=== PATIENT | female | born 1965 | race Native Hawaiian/Other Pacific Islander ===

== ENCOUNTER 2017-06-27 11:15 | Outpatient (CLI) | payer OTHER ==
[~2017-06-27 11:15] MED LIST: BENICAR20 MG PO; LEVO0.0218 PO; LIPITOR20 MG PO
== END 2017-06-28 04:41 | disposition home or self-care (01) ==
LOC: MAMMO 11:15
DX: Z12.31 Encounter for screening mammogram for malignant neoplasm of breast (principal)

== ENCOUNTER 2017-07-19 10:53 | Outpatient (CLI) | payer OTHER | END 2017-07-19 23:58 | disposition home or self-care (01) | LOC: CT 10:53 | DX: R59.1 Generalized enlarged lymph nodes (principal) ==

== ENCOUNTER 2017-11-02 10:21 | Emergency (ER) | payer OTHER ==
[~2017-11-02] VITALS: Ht 162.6 cm; Wt 76.2 kg
[2017-11-02 10:25] VITALS: TEMP 97.9
[2017-11-02 11:27] LABS: PLATELET COUNT 217 K/uL (152-353)
[2017-11-02 11:29] LABS: POTASSIUM 3.7 mmol/L (3.6-5.2)
[2017-11-02 12:12] VITALS: BP 164/80
== END 2017-11-02 12:12 | disposition home or self-care (01) ==
LOC: ED 10:21
PROVIDERS: Emergency Medicine
DX: K29.60 Other gastritis without bleeding (principal); N39.0 Urinary tract infection, site not specified
CPT/HCPCS: 74022; 80053; 81000; 83690; 85027; 87086; 87088; 99283

== ENCOUNTER 2019-07-09 07:49 | Outpatient (CLI) | payer OTHER | END 2019-07-09 20:13 | disposition home or self-care (01) | LOC: RAD 07:49 | DX: N95.8 Other specified menopausal and perimenopausal disorders (principal) ==

== ENCOUNTER 2020-06-04 14:33 | Outpatient (CLI) | payer OTHER | END 2020-06-04 19:05 | disposition home or self-care (01) | LOC: MRI 14:33 | PROVIDERS: ATTEND Orthopaedic Surgery | DX: M25.532 Pain in left wrist (principal); M54.2 Cervicalgia; M54.12 Radiculopathy, cervical region ==

== ENCOUNTER 2020-07-27 15:50 | Outpatient (CLI) | payer OTHER | END 2020-07-27 20:18 | disposition home or self-care (01) | LOC: US 15:50 | PROVIDERS: ATTEND Orthopaedic Surgery | DX: I82.401 Acute embolism and thrombosis of unspecified deep veins of right lower extremity (principal); M79.671 Pain in right foot; M19.071 Primary osteoarthritis, right ankle and foot; M25.561 Pain in right knee; M17.11 Unilateral primary osteoarthritis, right knee ==

== ENCOUNTER 2020-09-07 14:38 | Outpatient (CLI) | payer OTHER | END 2020-09-07 21:12 | disposition home or self-care (01) | LOC: MRI 14:38 | PROVIDERS: ATTEND Orthopaedic Surgery | DX: I82.401 Acute embolism and thrombosis of unspecified deep veins of right lower extremity (principal); M79.671 Pain in right foot; M19.071 Primary osteoarthritis, right ankle and foot; M25.561 Pain in right knee; M17.11 Unilateral primary osteoarthritis, right knee; M25.461 Effusion, right knee; S83.241A Other tear of medial meniscus, current injury, right knee, initial encounter ==

== ENCOUNTER 2021-07-07 14:54 | Outpatient (CLI) | payer OTHER | END 2021-07-07 19:18 | disposition home or self-care (01) | LOC: RAD 14:54 | PROVIDERS: ATTEND Nurse Practitioner | DX: R05.3 Chronic cough (principal) ==

== ENCOUNTER 2021-09-12 11:16 | Outpatient (CLI) | payer OTHER | END 2021-09-12 19:54 | disposition home or self-care (01) | LOC: RAD 11:16 | PROVIDERS: ATTEND Internal Medicine Rheumatology | DX: M05.79 Rheumatoid arthritis with rheumatoid factor of multiple sites without organ or systems involvement (principal); Z79.899 Other long term (current) drug therapy ==

== ENCOUNTER 2021-09-16 12:45 | Outpatient (CLI) | payer OTHER | END 2021-09-16 20:35 | disposition home or self-care (01) | LOC: RAD 12:45 | PROVIDERS: ATTEND Internal Medicine | DX: Z12.31 Encounter for screening mammogram for malignant neoplasm of breast (principal); Z13.820 Encounter for screening for osteoporosis; M81.8 Other osteoporosis without current pathological fracture ==

== ENCOUNTER 2021-11-16 19:49 | Emergency (ER) | payer OTHER ==
[~2021-11-16] VITALS: Ht 162.6 cm; Wt 67.1 kg
[2021-11-16 20:38] LABS: POTASSIUM 4.2 mmol/L (3.6-5.2)
[2021-11-16 20:45] LABS: PLATELET COUNT 227 K/uL (152-353)
[2021-11-16 22:20] VITALS: BP 158/87; TEMP 97
== END 2021-11-16 22:25 | disposition home or self-care (01) ==
LOC: ED 19:49
PROVIDERS: Emergency Medicine Emergency Medical Services
DX: S00.03XA Contusion of scalp, initial encounter (principal); S16.1XXA Strain of muscle, fascia and tendon at neck level, initial encounter; R10.84 Generalized abdominal pain; V49.40XA Driver injured in collision with unspecified motor vehicles in traffic accident, initial encounter; Y92.89 Other specified places as the place of occurrence of the external cause
CPT/HCPCS: 36415; 80053; 82150; 83690; 85027; 96374; 99284; J2405; Q9963

== ENCOUNTER 2021-12-28 09:27 | Outpatient (CLI) | payer OTHER | END 2021-12-28 18:53 | disposition home or self-care (01) | LOC: CT 09:27 | PROVIDERS: ATTEND Internal Medicine | DX: I82.402 Acute embolism and thrombosis of unspecified deep veins of left lower extremity (principal); R06.02 Shortness of breath; R07.89 Other chest pain | CPT/HCPCS: 36415; 82565; 84520; Q9963 ==

== ENCOUNTER 2022-01-17 14:26 | Outpatient (CLI) | payer OTHER | END 2022-01-17 19:03 | disposition home or self-care (01) | LOC: RAD 14:26 | PROVIDERS: ATTEND Internal Medicine | DX: R06.02 Shortness of breath (principal) ==

== ENCOUNTER 2022-03-15 12:55 | Outpatient (CLI) | payer OTHER | END 2022-03-15 21:20 | disposition home or self-care (01) | LOC: LABW 12:55 | PROVIDERS: ATTEND Nurse Practitioner | DX: R19.7 Diarrhea, unspecified (principal) | CPT/HCPCS: 82272; 83630; 87015; 87045; 87324; 87328; 87329; 87449; 87899 ==

== ENCOUNTER 2022-06-05 09:11 | Outpatient (CLI) | payer OTHER | END 2022-06-05 21:36 | disposition home or self-care (01) | LOC: RAD 09:11 | PROVIDERS: ATTEND Nurse Practitioner Gerontology | DX: M54.2 Cervicalgia (principal) ==

== ENCOUNTER 2022-09-18 11:00 | Outpatient (CLI) | payer OTHER | END 2022-09-18 18:59 | disposition home or self-care (01) | LOC: MAMMO 11:00 | PROVIDERS: ATTEND Physician Assistant | DX: Z12.31 Encounter for screening mammogram for malignant neoplasm of breast (principal) ==

== ENCOUNTER 2022-12-01 14:18 | Outpatient (CLI) | payer OTHER | END 2022-12-01 19:10 | disposition home or self-care (01) | LOC: RAD 14:18 | PROVIDERS: ATTEND Nurse Practitioner Gerontology | DX: Z22.7 Latent tuberculosis (principal) ==